=== PATIENT | female | born 1965 | race Caucasian/White ===

== ENCOUNTER → 2017-01-01 | Day surgery (SDC) | payer OTHER ==
[~2017-01-01] MED LIST: ADVIL200 M2 PO; CITALOPRAM HBR40 MG PO; LORTAB 5/500 TA1 TA2 PO; PENNSAID112 GM TP; PERCOCET 10/31 UDTA1 PO; PHENERGAN25 M1 PO; PRILOSEC20 M1 PO; ROBAXIN 750750 MG PO; VENLAFAXINE HC150 M1 PO; ZOLOFT50 MG PO
--- NOTE | ~2017-01-01 | OR ---
Unit #: [id number] #: [id number] Patient: KIMBERLY AUGUSTINE [id number] [address] [place], [place] [address] [id number] O MR#: [id number] NAME: KIMBERLY AUGUSTINE ROOM: Date of Procedure: 01/01/2017 Admission Date: 01/01/2017 Surgeon: Sami Marks M.D. : 1965 Attending Physician: Sami Marks M.D. Primary Care Physician: Generic Doctor Not In System OPERATIVE REPORT PREOPERATIVE DIAGNOSES Degenerative cervical disk disease, cervical radiculopathy, neck pain. POSTOPERATIVE DIAGNOSES Degenerative cervical disk disease, cervical radiculopathy, neck pain. PROCEDURE PERFORMED Cervical epidural steroid injection with intravenous sedation and fluoroscopic guidance for needle localization. INDICATIONS FOR PROCEDURE The patient is a 51-year-old female with return of neck and right greater than left upper extremity pain, paresthesia and numbness due to severe multilevel degenerative disk disease, most significant at C5-6, still severe at C6-7. She failed to settle with conservative treatment, rehabilitation, facet injections, occipital nerve blocks, medical management alone. She was treated with epidural steroids on as needed basis, which had given her 3 to 6 months of improvement when done. Last injection was a little over 4 months ago. She did well with that. She had recently return of the symptoms. So, the plan is to repeat an epidural steroid injection today. DESCRIPTION OF PROCEDURE The patient was placed in the seated position. Standard monitors were applied. 2 mg of Versed were given for sedation and anxiolysis, which were adequate. Vital signs remained stable. Sterile prep and drape then of the cervical area was performed. The skin then at the C5-6 level was localized with 1% lidocaine. An 18-gauge Goldbelytead needle was then advanced via loss of resistance technique and fluoroscopic guidance in toward the epidural space. After confirming proper positioning with fluoroscopy and radiographic contrast, 80 mg of Depo-Medrol and 2 mL of 0.25% bupivacaine were deposited. The patient tolerated the procedure otherwise well and was discharged to recovery room in stable condition. Dictated by... Jumana Najera/karrie TD: 01/02/2017 01:21 JOB #: [id number] Unit #: [id number] #: [id number] Patient: KIMBERLY AUGUSTINE OPERATIVE REPORT X Sami Marks MD X PROCEDURE OPERATIVE NOTE
== END | disposition home or self-care (01) ==
LOC: CCSC 08:10
DX: M50.123 Cervical disc disorder at C6-C7 level with radiculopathy (principal); M50.122 Cervical disc disorder at C5-C6 level with radiculopathy
CPT/HCPCS: J1040; J2250

== ENCOUNTER → 2017-04-21 | Day surgery (SDC) | payer OTHER ==
--- NOTE | ~2017-04-21 | OR ---
Unit #: [id number] #: [id number] Patient: KIMBERLY AUGUSTINE [id number] [address] [place], [place] [address] [id number] O MR#: [id number] NAME: KIMBERLY AUGUSTINE ROOM: Date of Procedure: 04/21/2017 Admission Date: 04/21/2017 Surgeon: Sami Marks M.D. : 1965 Attending Physician: Sami Marks M.D. Primary Care Physician: Keerthi Bell OPERATIVE REPORT PREOPERATIVE DIAGNOSES Back pain, right sacroiliac joint dysfunction, status post lumbar fusion. POSTOPERATIVE DIAGNOSES Back pain, right sacroiliac joint dysfunction, status post lumbar fusion. PROCEDURE PERFORMED Right sacroiliac joint injection with fluoroscopic guidance for needle localization history. INDICATIONS FOR PROCEDURE The patient is a 51-year-old female, status post L4, L5, S1 MAS TLIF, who over the things physically several weeks ago and has significant increased right low back, buttock, hip, and leg pain on examination. Symptom complex was consistent with sacroiliac joint irritation and is not settle with conservative measures. So, request is for trial of the sacroiliac joint injection. Risks and benefits of all reviewed with the patient. DESCRIPTION OF PROCEDURE The patient was placed in a prone position. Standard monitors were applied. Sterile prep and drape of the right low back was performed. The skin overlying the midpoint of the right sacroiliac joint was localized with 1% lidocaine. A 22-gauge Quincke point spinal needle was advanced using fluoroscopic guidance to bring the needle tip to within the edge of the sacroiliac joint. Position was confirmed with radiographic contrast and fluoroscopy. This was followed by a dose of 80 mg of Depo-Medrol and 4 mL of 0.125% bupivacaine were deposited. The patient tolerated the procedure otherwise well and was discharged to the recovery room in stable condition. Dictated by... Jumana Najera/karrie TD: 04/21/2017 23:08 JOB #: [id number] Unit #: [id number] #: [id number] Patient: KIMBERLY AUGUSTINE OPERATIVE REPORT Page 1 of 1 X Sami Marks MD X PROCEDURE OPERATIVE NOTE
== END | disposition home or self-care (01) ==
LOC: CCSC 08:13
DX: M53.3 Sacrococcygeal disorders, not elsewhere classified (principal); K21.9 Gastro-esophageal reflux disease without esophagitis; Z98.1 Arthrodesis status
CPT/HCPCS: J1040; J2250

== ENCOUNTER → 2017-06-30 | Day surgery (SDC) | payer OTHER ==
--- NOTE | ~2017-06-30 | OR ---
Unit #: [id number] #: [id number] Patient: KIMBERLY AUGUSTINE [id number] [address] [address] [id number] O MR#: [id number] NAME: KIMBERLY AUGUSTINE ROOM: Date of Procedure: 06/30/2017 Admission Date: 06/30/2017 Surgeon: Sami Marks M.D. : 1965 Attending Physician: Sami Marks M.D. Primary Care Physician: Keerthi Bell OPERATIVE REPORT PREOPERATIVE DIAGNOSES Neck pain, cervical radiculopathy, degenerative cervical disk disease. POSTOPERATIVE DIAGNOSES Neck pain, cervical radiculopathy, degenerative cervical disk disease. PROCEDURE PERFORMED Cervical epidural steroid injection with intravenous sedation and fluoroscopic guidance for needle localization. INDICATIONS FOR PROCEDURE The patient is a 51-year-old female with return of neck and upper extremity pain. She has significant posttraumatic degenerative disk disease worse at C5-C6 and C6-C7. She is not a good surgical candidate. She was last treated with epidural steroid injections about 5-1/2 months ago and did very well for 5 months following that. Pain is returned in same distribution. Based on history, pathology, symptomatology, and prior response to treatment, we are going to proceed with a repeat epidural steroid injection today. DESCRIPTION OF PROCEDURE The patient was placed in the seated position. Standard monitors were applied. 2 mg of Versed were given for sedation and anxiolysis, which were adequate. Vital signs remained stable. Sterile prep and drape then of the cervical area was performed. The skin then at the C6 level was localized with 1% lidocaine. An 18-gauge TCZ [place] needle was then advanced via hanging drop technique and fluoroscopic guidance in toward the epidural space. The patient did not complain of pain or paresthesia during needle advancement. After confirming proper positioning with fluoroscopy and radiographic contrast, 80 mg of Depo-Medrol and 2 mL of 0.25% bupivacaine were deposited. The patient tolerated the procedure well and was discharged to the recovery room in stable condition. Dictated by... Jumana Najera/karrie TD: 06/30/2017 17:40 Unit #: [id number] #: [id number] Patient: KIMBERLY AUGUSTINE JOB #: [id number] OPERATIVE REPORT Page 1 of 1 X Sami Marks MD X PROCEDURE OPERATIVE NOTE
== END | disposition home or self-care (01) ==
LOC: CCSC 09:15
DX: M50.122 Cervical disc disorder at C5-C6 level with radiculopathy (principal); K21.9 Gastro-esophageal reflux disease without esophagitis; Z79.899 Other long term (current) drug therapy; Z98.1 Arthrodesis status
CPT/HCPCS: J1040; J2250

== ENCOUNTER → 2017-07-07 | Day surgery (SDC) | payer OTHER ==
--- NOTE | ~2017-07-07 | OR ---
Unit #: [id number] #: [id number] Patient: KIMBERLY AUGUSTINE [id number] [address] [place], [place] [address] [id number] O MR#: [id number] NAME: KIMBERLY AUGUSTINE ROOM: Date of Procedure: 07/07/2017 Admission Date: 07/07/2017 Surgeon: Sami Marks M.D. : 1965 Attending Physician: Sami Marks M.D. Referring Physician: Sami Marks M.D. Primary Care Physician: Keerthi Bell OPERATIVE REPORT PREOPERATIVE DIAGNOSES Neck pain, degenerative cervical disk disease, cervical radiculopathy. POSTOPERATIVE DIAGNOSES Neck pain, degenerative cervical disk disease, cervical radiculopathy. PROCEDURE PERFORMED Cervical epidural steroid injection with intravenous sedation and fluoroscopic guidance for needle localization. INDICATIONS FOR PROCEDURE The patient is a 51-year-old female, who had return of neck and upper extremity pain associated with nonsurgical severe degenerative cervical disk disease, most significant at C5-C6 level. She had an initial epidural steroid injection done last week, which resulted in moderate settling of her symptom complex. She states in the past she is unable to take the second injection to maximize improvement. Based on her history, pathology, symptomatology, and response, we are going to proceed with a second injection today. DESCRIPTION OF PROCEDURE The patient was placed in a seated position. Standard monitors were applied. 2 mg of Versed were given for sedation and anxiolysis, which were adequate. Vital signs remained stable. Sterile prep and drape then of the cervical area were performed. The skin then at the C5-C6 level was localized with 1% lidocaine. An 18-gauge Master Routetead needle was then advanced via hanging drop technique and fluoroscopic guidance in toward the epidural space. After confirming proper positioning with fluoroscopy and radiographic contrast, 80 mg of Depo-Medrol and 2 mL of 0.25% bupivacaine were deposited. The patient tolerated the procedure otherwise well and was discharged to the recovery room in stable condition. Dictated by... Jumana Najera/karrie TD: 07/07/2017 15:03 JOB #: [id number] CC: [facility] Unit #: [id number] #: [id number] Patient: KIMBERLY AUGUSTINE OPERATIVE REPORT Page 1 of 1 X Sami Marks MD X PROCEDURE OPERATIVE NOTE
== END | disposition home or self-care (01) ==
LOC: CCSC 09:24
DX: M50.122 Cervical disc disorder at C5-C6 level with radiculopathy (principal); K21.9 Gastro-esophageal reflux disease without esophagitis; Z98.1 Arthrodesis status; Z79.899 Other long term (current) drug therapy
CPT/HCPCS: J1040; J2250

== ENCOUNTER → 2017-07-14 | Day surgery (SDC) | payer OTHER ==
--- NOTE | ~2017-07-14 | OR ---
Unit #: [id number] #: [id number] Patient: KIMBERLY AUGUSTINE [id number] [address] [place], [place] [address] [id number] O MR#: [id number] NAME: KIMBERLY AUGUSTINE ROOM: Date of Procedure: 07/14/2017 Admission Date: 07/14/2017 Surgeon: Sami Marks M.D. : 1965 Attending Physician: Sami Marks M.D. Primary Care Physician: Keerthi Bell OPERATIVE REPORT PREOPERATIVE DIAGNOSES 1. Neck pain, cervical radiculopathy, degenerative cervical disk disease. 2. Low back pain, postfusion, sacroiliac joint dysfunction. POSTOPERATIVE DIAGNOSES 1. Neck pain, cervical radiculopathy, degenerative cervical disk disease. 2. Low back pain, postfusion, sacroiliac joint dysfunction. PROCEDURES PERFORMED 1. Cervical epidural steroid injection with intravenous sedation and fluoroscopic guidance for needle localization. 2. Right sacroiliac joint injection with fluoroscopic guidance. INDICATIONS FOR PROCEDURE The patient is a 51-year-old female with previously mentioned diagnosis. She has nonsurgical pathology in a cervical spine and responded extremely well to epidural steroids in conjunction with medication management. She did well for about 6 months. She had resurgence of the symptoms, so plan is to repeat injections. Two were done at this point. She is not back to the level she gotten in the past, so plan is to proceed with a final injection today. The patient also has right sacroiliac joint dysfunction associated with a prior lumbar fusion causing right-sided back pain. This has settled well to interventions in the past, last single injection helping for several months. Plan, based on the patient's pathology, symptomatology, and treatment options, is to repeat a final cervical injection at this point and also repeat a right sacroiliac joint injection. DESCRIPTION OF PROCEDURE Procedure #1: The patient was placed in a seated position. Standard monitors were applied. 2 mg of Versed were given for sedation and anxiolysis, which were adequate. Vital signs remained stable. Sterile prep and drape then of the cervical area was performed. The skin then at the C5-C6 level was localized with 1% lidocaine. An 18-gauge Aledia needle was then advanced via hanging drop technique and fluoroscopic guidance in toward the epidural space. After confirming proper needle tip positioning with fluoroscopy and radiographic contrast, 80 mg of Depo-Medrol and 2 mL of 0.25% bupivacaine were deposited. The patient tolerated this part of procedure without complaint. Procedure #2: Right sacroiliac joint injection with fluoroscopic guidance. The patient was placed in a prone position. Standard monitors were applied. Sterile prep and drape of the right low back and buttock Unit #: [id number] #: [id number] Patient: KIMBERLY AUGUSTINE were performed. Fluoroscopy used to identify the sacroiliac joint. The midline joint was localized with 1% lidocaine. A 22-gauge Quincke point spinal needle was advanced with fluoroscopic guidance in toward the edge of the sacroiliac joint. After confirming proper positioning with fluoroscopy and radiographic contrast, a dose of 80 mg of Depo-Medrol and 5 mL of 0.25% bupivacaine were deposited. The needle was flushed and removed. The patient tolerated the procedure otherwise well and was discharged to the recovery room in stable condition. Dictated by... Jumana Najera/karrie TD: 07/14/2017 12:53 JOB #: [id number] CC: Lolita Boyd OPERATIVE REPORT Page 1 of 1 X Sami Marks MD X PROCEDURE OPERATIVE NOTE
== END | disposition home or self-care (01) ==
LOC: CCSC 09:16
DX: M50.10 Cervical disc disorder with radiculopathy, unspecified cervical region (principal); M53.3 Sacrococcygeal disorders, not elsewhere classified; K21.9 Gastro-esophageal reflux disease without esophagitis; Z79.899 Other long term (current) drug therapy; Z98.1 Arthrodesis status
CPT/HCPCS: J1040; J2250